=== PATIENT | male | born 1985 | race Caucasian/White ===

== ENCOUNTER 2021-06-09 00:17 | Inpatient (IN) | payer OTHER ==
[~2021-06-09] VITALS: Ht 188 cm; Wt 86.4 kg
--- NOTE | 2021-06-09 00:21 | NUR ---
PT BIBRA FROM HOME C/O BRIGHT RED RECTAL BLEEDING X2 DAYS. PLACED IN BED 2 ON MONITOR AND PULSE OX. ER MD AT BEDSIDE FOR EVAL AND ORDERS.
--- NOTE | 2021-06-09 00:51 | NUR ---
BLOOD WORK COLLECTED, SENT TO LAB.
[2021-06-09 00:52] LABS: BASOPHILS % (AUTO) 0.4 % (0.0-2.0); EOSINOPHILS % (AUTO) 0.9 % (0.0-6.0); HEMATOCRIT 38 % (39-51); HEMOGLOBIN 12.7 g/dL (13.5-17.5); LYMPHOCYTES # (AUTO) 3.6 K/uL (0.8-4.8); LYMPHOCYTES % (AUTO) 38.4 % (20.0-44.0); MEAN CORPUSCULAR HGB CONC 34 g/dl (31.0-36.0); MEAN CORPUSCULAR VOLUME 90 fL (80-96); MONOCYTES # (AUTO) 0.5 K/uL (0.1-1.30); MONOCYTES % (AUTO) 5.7 % (2.0-12.0); NEUTROPHILS # (AUTO) 5.2 K/uL (1.8-8.9); NEUTROPHILS % (AUTO) 54.6 % (43.0-81.0); PLATELET COUNT (AUTO) 304 K/uL (150-450); RED BLOOD CELL COUNT(AUTO) 4.19 MIL/uL (4.5-6.0); WHITE BLOOD COUNT (AUTO) 9.5 K/uL (4.3-11.0)
[2021-06-09 01:14] LABS: ALBUMIN 3.5 g/dL (3.4-5.0); BILIRUBIN,DIRECT 0.1 mg/dL (0.0-0.2); BILIRUBIN,TOTAL 0.2 mg/dL (0.2-1.0); CALCIUM, SERUM 8.4 mg/dL (8.5-10.1); POTASSIUM 4.1 mmol/L (3.5-5.1); TOTAL PROTEIN, SERUM 6.5 g/dL (6.4-8.2)
--- NOTE | 2021-06-09 02:06 | NUR ---
CALLED [facility] FOR REPORT
--- NOTE | 2021-06-09 02:45 | NUR ---
PT AMBULATED TO THE RESTROOM WITH STEADY GAIT.
--- NOTE | 2021-06-09 04:31 | NUR ---
PT AMBULATED TO THE RESTROOM AND BACK. STATED HAD BRIGHT RED STOOL.
--- NOTE | 2021-06-09 04:41 | NUR ---
DR. RODARTE PAGED PER REQUEST
--- NOTE | 2021-06-09 05:25 | NUR ---
PT AMBULATED TO THE RESTROOM WITH STEADY GAIT. 1 MINUTE AFTER USING THE RESTROOM, RESTROOM CALL LIGHT RANG, BATHROOM DOOR WAS OPENED BY SECURITY. PT WAS FOUND ON THE FLOOR, AAOX4, DIAPHORETIC, NAUSEOUS, -LOC. LACERATION NOTED ON FOREHEAD. PT WAS ASSISTED BACK TO HIS BED. BG WAS CHECKED 123.
[2021-06-09] MEDS ORDERED: ONDANSETRON HCL/PF 4 MG/2 ML VIAL ONE (05:29)
[2021-06-09] MEDS ORDERED: ONDANSETRON HCL/PF 4 MG/2 ML VIAL IV ONE (05:30)
--- NOTE | 2021-06-09 05:42 | NUR ---
PT BROUGHT TO CT AND BACK.
--- NOTE | 2021-06-09 05:43 | NUR ---
DR. RODARTE REPAGED PER REQUEST
[2021-06-09 05:52] LABS: BASOPHILS # (AUTO) 0.1 K/uL (0.0-0.2); BASOPHILS % (AUTO) 0.4 % (0.0-2.0); EOSINOPHILS % (AUTO) 0.1 % (0.0-6.0); HEMATOCRIT 34 % (39-51); HEMOGLOBIN 11.4 g/dL (13.5-17.5); LYMPHOCYTES # (AUTO) 3.6 K/uL (0.8-4.8); LYMPHOCYTES % (AUTO) 22.2 % (20.0-44.0); MEAN CORPUSCULAR HGB CONC 33 g/dl (31.0-36.0); MEAN CORPUSCULAR VOLUME 90 fL (80-96); MONOCYTES # (AUTO) 0.6 K/uL (0.1-1.30); MONOCYTES % (AUTO) 3.7 % (2.0-12.0); NEUTROPHILS # (AUTO) 11.9 K/uL (1.8-8.9); NEUTROPHILS % (AUTO) 73.6 % (43.0-81.0); PLATELET COUNT (AUTO) 376 K/uL (150-450); RED BLOOD CELL COUNT(AUTO) 3.79 MIL/uL (4.5-6.0); WHITE BLOOD COUNT (AUTO) 16.2 K/uL (4.3-11.0)
--- NOTE | 2021-06-09 06:05 | NUR ---
PT IN BED RESTING COMFORTABLY. AAOX4. VSS. PT AWARE OF PLAN OF CARE. AWARE WHY HE NEEDS TO BE ADMITTED. PROVIDED WITH MORE BLANKETS. WILL CONTINUE TO MONITOR.
[2021-06-09 06:10] LABS: CALCIUM, SERUM 8.3 mg/dL (8.5-10.1); POTASSIUM 4.2 mmol/L (3.5-5.1)
[2021-06-09 06:16] LABS: ALBUMIN 3.3 g/dL (3.4-5.0); BILIRUBIN,TOTAL 0.3 mg/dL (0.2-1.0); TOTAL PROTEIN, SERUM 6.2 g/dL (6.4-8.2)
[2021-06-09 06:24] LABS: THYROID STIMULATING HORMONE 1.96 uIU/mL (0.358-3.74)
--- NOTE | 2021-06-09 07:37 | NUR ---
ASSESSED PT ON BED AWAKE AND ALERT, NOT IN RESPIRATORY DISTRESS, V/S STABLE, KEPT RESTED AND COMFORTABLE. WILL CONTINUE TO MONITOR.
[2021-06-09] MEDS ORDERED: PARO20TA7 PO (08:15)
--- NOTE | 2021-06-09 08:42 | NUR ---
AT BEDSIDE FOR EVAL.
[2021-06-09] MEDS ORDERED: PANTOPRAZOLE 40 MG TABLET.DR PO ONE (08:57)
[2021-06-09] MEDS ORDERED: Potassium Chloride 10 MEQ in IV NS 0.9% 1,000 ML IV PRN (09:00)
[2021-06-09] MEDS ORDERED: PANTOPRAZOLE 40 MG VIAL ONE (09:06)
[2021-06-09] MEDS: PANTOPRAZOLE 40 MG VIAL IV SCH (09:09)
[2021-06-09] MEDS ORDERED: PANTOPRAZOLE 40 MG TABLET.DR PO SCH (09:30)
[2021-06-09] MEDS ORDERED: HYDROCODONE/APAP 5/325MG TABLET PO PRN (09:30)
[2021-06-09] MEDS ORDERED: ACETAMINOPHEN 325 MG TABLET PO PRN (09:30)
[2021-06-09] MEDS ORDERED: IV D5/ 0.9% NACL 1,000 ML IV PRN (09:30)
[2021-06-09 09:39] LABS: HEMOGLOBIN 10.7 g/dL (13.5-17.5)
--- NOTE | 2021-06-09 10:40 | NUR ---
HOUSE SUP CALLED,NO BED AT THIS TIME
[2021-06-09] MEDS: PAROXETINE HCL 20 MG TABLET PO SCH (11:00)
[2021-06-09 16:00] VITALS: BP 114/65
--- NOTE | 2021-06-09 16:16 | NUR ---
NO AVAILABLE BED YET PER HOUSE SUP
--- NOTE | 2021-06-09 16:38 | NUR ---
REPORT GIVEN TO RIP LAM
--- NOTE | 2021-06-09 17:00 | NUR ---
MS BROADCAST NEWS PRODUCER NOTES PATIENT ARRIVED ON UNIT WITH STABLE VITAL SIGNS. ALERT AND ORIENTED X 4. NO SIGNS OR SYMPTOMS OF DISTRESS NOTED. NO SOB. BREATHING IS EVEN AND UNLABORED. PATIENT IS TOLERATING WELL ON RA. IV ACCESS RAC#20 PATENT, INTACT AND FLUSHING WELL. ORIENTED PATIENT TO UNIT AND STAFF. CALL LIGHT IS WITHIN REACH. WILL CONTINUE TO MONITOR PATIENT THROUGHOUT SHIFT.
[2021-06-09] MEDS ORDERED: PEG 3350/NA SULF,BICARB,CL/KCL 4,000 ML BOTTLE PO ONE (18:00)
--- NOTE | 2021-06-09 18:56 | NUR ---
MS RN CLOSING NOTES PATIENT IS ASLEEP IN BED, RESTING. ALERT AND ORIENTED X4. NO SIGNS OR SYMPTOMS OF DISTRESS NOTED. NO SOB. BREATHING IS EVEN AND UNLABORED. IV ACCESS RAC#20 PATENT AND INTACT WITH D5 AND NS 0.9% RUNNING AT 75MLS/HR. ALL NEEDS MET THROUGHOUT SHIFT. SAFETY AND FALL PRECAUTIONS IN PLACE WITH BED LOCKED AT LOW POSITION AND SIDE RAILS UP X2. CALL LIGHT AND BED SIDE TABLE IS WITHIN REACH. WILL ENDORSE CONTINUITY OF CARE TO ONCOMING SHIFT.
--- NOTE | 2021-06-09 19:30 | NUR ---
RIP NOTES: IV FLUID WITH POTASSIUM 10MEQ TO D/C WITH K LEVEL AT 4.[address] BAHENA
--- NOTE | 2021-06-09 19:59 | NUR ---
RN OPENING NOTES: RECEIVED PATIENT AWAKE IN BED, BED IN LOW POSITION, CALL LIGHTS WITHIN REACH, NO COMPLAIN OF PAIN AND DISCOMFORT AT THIS TIME, PATIENT IS A/O X4 AMBULATORY WITH SUPERVISION ON BRP , FALL RISK DUE TO HX OF FAINTING, NPO EXCEPT MEDS DUE TO SCHEDULE COLOSTOMY TOMM, PATIENT WITH IV LINE ON RAC#20 WITH D5 NS@75ML PER HOUR INFUSING WELL, PATIENT KEPT CLEAN AND DRY, WILL CONTINUE TO MONITOR.
[2021-06-09 20:08] LABS: HEMATOCRIT 29 % (39-51); HEMOGLOBIN 9.6 g/dL (13.5-17.5); MEAN CORPUSCULAR HGB CONC 33 g/dl (31.0-36.0); MEAN CORPUSCULAR VOLUME 90 fL (80-96); PLATELET COUNT (AUTO) 299 K/uL (150-450); RED BLOOD CELL COUNT(AUTO) 3.19 MIL/uL (4.5-6.0); WHITE BLOOD COUNT (AUTO) 11.6 K/uL (4.3-11.0)
[2021-06-09 20:36] VITALS: BP 108/66
--- NOTE | 2021-06-10 06:42 | NUR ---
MS RN CLOSING NOTE: PATIENT SLEEP IN BED COMFORTABLY,BED IN LOW POSITION, CALL LIGHTS WITHIN REACH, NO COMPLAIN OF PAIN AND DISCOMFORT AT THIS TIME, PATIENT ON NPO WITH SCHEDULE COLONOSCOPY TODAY AT 1230, CONSENT SIGNED, IV LINE AT RIGHT AC #20 RUNNING ON D5 0.9NSS @75ML PER HOUR INFUSING WELL, AMBULATORY WITH SUPERVISION, PATIENT KEPT CLEAN AND DRY ALL NEEDS MET ENDORSE TO INCOMING SHIFT.
[2021-06-10 07:13] LABS: HEMOGLOBIN 8.3 g/dL (13.5-17.5)
[2021-06-10 07:18] LABS: HEMATOCRIT 24 % (39-51); HEMOGLOBIN 8.3 g/dL (13.5-17.5); MEAN CORPUSCULAR HGB CONC 35 g/dl (31.0-36.0); MEAN CORPUSCULAR VOLUME 90 fL (80-96); PLATELET COUNT (AUTO) 251 K/uL (150-450); RED BLOOD CELL COUNT(AUTO) 2.67 MIL/uL (4.5-6.0); WHITE BLOOD COUNT (AUTO) 7.1 K/uL (4.3-11.0)
--- NOTE | 2021-06-10 07:34 | NUR ---
MS RN OPENING NOTES RECEIVED PATIENT LYING IN BED AWAKE. A/O X4. STABLE ON ROOM AIR - NO SOB NOTED. NO DISTRESS/DISCOMFORT NOTED. PATIENT IS AMBULATORY WITH ASSIST. CURRENTLY NPO FOR PROCEDURE @ NOON. IV ACCESS TO RIGHT AC #20 - RUNNING D5NS @ 75ML/HR. SAFETY MEASURES IN PLACE. CALL LIGHT WITHIN REACH. WILL CONTINUE TO MONITOR.
[2021-06-10] MEDS: PAROXETINE HCL 20 MG TABLET PO SCH (08:12)
[2021-06-10] MEDS: PANTOPRAZOLE 40 MG VIAL IV SCH (09:05)
[2021-06-10 09:46] VITALS: BP 96/69
[2021-06-10] MEDS ORDERED: MIDAZOLAM HCL 2 MG/2ML VIAL ONE (12:12)
--- NOTE | 2021-06-10 15:05 | NUR ---
MS DESIGN ENGINEERING SPECIALIST NOTE PATIENT DISCHARGED VIA PRIVATE CAR. S/P COLONOSCOPY WITH BIOPSY. PATIENT STABLE, A/O X4. STABLE ON ROOM AIR - NO SOB NOTED. NO PAIN NOTED AT THIS TIME. ALL EXITCARE AND PATIENT EDUCATION REVIEWED WITH PATIENT - VERBALIZED UNDERSTANDING. PRESCRIPTION GIVEN TO PATIENT. IV ACCESS REMOVED. WRISTBAND REMOVED. PATIENT ACCOMPANIED TO LOBBY VIA WHEELCHAIR BY ISHMAEL ASIF. AWARE AND CHARGE NURSE AWARE OF DISCHARGE.
== END 2021-06-10 15:05 | disposition home or self-care (01) | DRG 254 ==
LOC: ER 00:21 → TRANSITION 06:29 → MED 16:42
PROVIDERS: ADMIT Internal Medicine; ATTEND Internal Medicine
PROC: 0DBP8ZX Excision of Rectum, Via Natural or Artificial Opening Endoscopic, Diagnostic (ICD-10-PCS; principal; 2021-06-10)
DX: K62.6 Ulcer of anus and rectum (principal); I95.9 Hypotension, unspecified; D62 Acute posthemorrhagic anemia; Z20.822 Contact with and (suspected) exposure to COVID-19; F17.200 Nicotine dependence, unspecified, uncomplicated; F32.9 Major depressive disorder, single episode, unspecified
CPT/HCPCS: 36415; 70450-TC; 80048-TC; 80053-TC; 80076-TC; 82962-TC; 83690-TC; 84443-TC; 85025-TC; 85027-TC; 85730-TC; 86850-TC; 87081-TC; 88305-TC; A6403; C9113; C9803; G0378; J2250; J2405; J2704; J3480; J3490; J7030; J7042

== ENCOUNTER 2023-12-12 16:58 | Emergency (ER) | payer OTHER ==
[~2023-12-12] VITALS: Ht 188 cm; Wt 95.3 kg
[~2023-12-12 16:58] MED LIST: PARO20TA7 PO
[2023-12-12 17:34] VITALS: TEMP 97.9
[2023-12-12 21:06] LABS: BASOPHILS % (AUTO) 0.3 % (0.0-2.0); EOSINOPHILS # (AUTO) 0.1 K/uL (0.0-0.7); EOSINOPHILS % (AUTO) 1.2 % (0.0-6.0); HEMATOCRIT 39 % (39-51); HEMOGLOBIN 13.2 g/dL (13.5-17.5); LYMPHOCYTES # (AUTO) 2.9 K/uL (0.8-4.8); LYMPHOCYTES % (AUTO) 32.5 % (20.0-44.0); MEAN CORPUSCULAR HEMOGLOBIN 30 PG (26.0-33.0); MEAN CORPUSCULAR HGB CONC 34 g/dl (31.0-36.0); MEAN CORPUSCULAR VOLUME 88 fL (80-96); MONOCYTES # (AUTO) 0.4 K/uL (0.1-1.30); MONOCYTES % (AUTO) 4.7 % (2.0-12.0); NEUTROPHILS # (AUTO) 5.4 K/uL (1.8-8.9); NEUTROPHILS % (AUTO) 61.3 % (43.0-81.0); PLATELET COUNT (AUTO) 274 K/uL (150-450); RED BLOOD CELL COUNT(AUTO) 4.46 MIL/uL (4.5-6.0); WHITE BLOOD COUNT (AUTO) 8.9 K/uL (4.3-11.0)
[2023-12-12 21:19] LABS: CALCIUM, SERUM 9.1 mg/dL (8.5-10.1); CARBON DIOXIDE 29 mmol/L (21-32); CHLORIDE 107 mmol/L (98-107); CREATININE 0.7 mg/dL (0.6-1.3); GLUCOSE 108 mg/dL (74-106); POTASSIUM 4.1 mmol/L (3.5-5.1); SODIUM SERUM 142 mmol/L (136-145); UREA NITROGEN, BLOOD 14 mg/dL (7-18)
[2023-12-12 22:31] VITALS: BP 133/74; O2SAT 99
== END 2023-12-12 22:31 | disposition home or self-care (01) ==
LOC: ER 17:03
DX: R07.9 Chest pain, unspecified (principal); I45.6 Pre-excitation syndrome; F41.9 Anxiety disorder, unspecified; F32.A Depression, unspecified; F17.200 Nicotine dependence, unspecified, uncomplicated
CPT/HCPCS: 36415; 71045-TC; 80048-TC; 84484-TC; 85025-TC